=== PATIENT | male | born 1970 | race Caucasian/White ===

== ENCOUNTER 2025-05-22 15:19 | Emergency (ER) | payer SELFPAY ==
--- OUTSIDE RECORDS SUMMARY | 2023-07-04 07:21 | XMS_ITS | Continuity of Care Document ---
Author Organization [facility] Address [address] [id number] [address] Phone Care Team Providers Care Aviation Neuropsychologist Name Role Phone Daniel Juarez OD Unavailable Unavailable Allergies, Adverse Reactions, Alerts Substance Reaction Status Criticality halothane Active No Information Medications Medication Instructions Dosage Effective Dates (start - stop) Status Comments PRAZOSIN 2MG CAPSULES TAKE 1 CAPSULE BY MOUTH EVERY MORNING AND 3 CAPSULES AT BEDTIME - Active CLONIDINE 0.1MG TABLETS TAKE 1 TABLET BY MOUTH THREE TIMES DAILY. JANUARY TAKE 1 ADDITIONAL TABLET PER DAY NEEDED FOR ELEVATED BLOOD PRESSURE - Active PANTOPRAZOLE 40MG TABLETS TAKE 1 TABLET BY MOUTH EVERY DAY - Active LISINOPRIL-HCTZ 20/12.5MG TABLETS TAKE 2 TABLETS BY MOUTH DAILY 2 tablet - Active Halcion 0.25 mg tablet take 1-2 tablet b y oral route every day at bedtime as needed - Active Bystolic 20 mg tablet take 1 tablet by oral route 2 times every day 20 MG - Active tizanidine 4 mg tablet take 1 tablet by oral route 2 times every day as needed not to exceed 3 doses in 24 hours 4 MG - Active amlodipine 10 mg tablet TAKE 1 TABLET BY MOUTH EVERY DAY - Active metformin 500 mg tablet take 1 tablet by oral route 2 times every day with morning and evening meals 500 MG - Active spironolactone 25 mg tablet take 1 tablet by oral route every day 25 MG - Active gabapentin 300 mg capsule TAKE 2 CAPSULE BY ORAL ROUTE THREE TIMES DAILY - Active Voltaren-XR 100 mg tablet,extended release take 1 tablet by oral route 2 times every day 100 MG - Active Procedures Procedure Date Vision svcs frames purchases Lens spher bifoc plano 4.00d Lens spher bifoc plano 4.00d FITTING OF SPECTACLES Vision svcs frames purchases Lens sphcyl bifocal 4.00d/.1 Lens sphcyl bifocal 4.00d/.1 FITTING OF SPECTACLES Vision svcs frames purchases Lens sphcyl bifocal 4.00d/.1 Lens sphcyl bifocal 4.00d/.1 FITTING OF SPECTACLES Tint photochromatic lens/es Tint photochromatic lens/es REFRACTION Eye Exam Estab Pt Fundus Photography With Interpretation A nd Report Bitewings Four Films Periodic Oral Evaluation Established Patient Prophylaxis Adult Fundus Photography With Interpretation A nd Report OFFICE/OUTPATIENT VISIT, EST Self-management Goals Reviewed Oral Hygiene Instructions Nutritional Counseling For Control Of De ntal Disea Caries Moderate Risk Exempt From Sealant Measure Periodic Oral Eval Est Patient - Adult Medicaid Bitewings Four Films Panoramic Film Intraoral Periapical First Film Intraoral Periapical Each Additional Film Intraoral Periapical Each Additional Film Intraoral Periapical Each Additional Film Mar-30-2022 Prophylaxis Adult Vision svcs frames purchases FITTING OF SPECTACLES Lens sphcyl bifocal 4.00d/.1 Lens sphcyl bifocal 4.00d/.1 FITTING OF SPECTACLES Vision svcs frames purchases FITTING OF SPECTACLES REFRACTION OFFICE/OUTPATIENT VISIT, EST Finalize Template Workaround OFFICE/OUTPATIENT VISIT, EST (1371) Finalize Template Workaround OFFICE/OUTPATIENT VISIT, EST (1371) Bitewings Four Films Prophylaxis Adult Periodic Oral Eval Est Patient - Adult Medicaid EDR Approval Note GLYCOSYLATED HEMOGLOBIN TEST HG A1C LEVEL LT 7.0% OFFICE/OUTPATIENT VISIT, EST OFFICE/OUTPATIENT VISIT EST Finalize Template Workaround OFFICE/OUTPATIENT VISIT, EST (1371) Finalize Template Workaround No Charge Vision svcs frames purchases Lens sphcy trifocal 4.0/.- Lens sphcy trifocal 4.0/.12- FITTING OF SPECTACLES Finalize Template Workaround OFFICE/OUTPATIENT VISIT EST Finalize Template Workaround No Charge REFRACTION OFFICE/OUTPATIENT VISIT EST Fundus Photography With Interpretation A nd Report OFFICE/OUTPATIENT VISIT, EST OFFICE/OUTPATIENT VISIT EST OFFICE/OUTPATIENT VISIT, EST IMMUNIZATION ADMIN FLU VAC NO PRSV 4 YUMIKO 6 Months+ - 019 OFFICE/OUTPATIENT VISIT EST COMPLETE CBC W/AUTO DIFF WBC METABOLIC PANEL TOTAL CA LIPID PANEL GLYCOSYLATED HEMOGLOBIN TEST HG A1C LEVEL LT 7.0% ROUTINE VENIPUNCTURE Treatment Plan Complete Resin-Based Composite One Surface, Posterior EDR Approval Note Prophylaxis Adult Pre-Pay For Services EDR Approval Note Panoramic Film Bitewings Four Films Comprehensive Oral Evaluatio n New Or Established EDR Approval Note Pre-Pay For Services OFFICE/OUTPATIENT VISIT EST Finalize Template Workaround No Charge METABOLIC PANEL TOTAL CA ROUTINE VENIPUNCTURE Finalize Template Workaround No Charge COMPREHEN METABOLIC PANEL ROUTINE VENIPUNCTURE OFFICE/OUTPATIENT VISIT EST COMPLETE CBC W/AUTO DIFF WBC COMPREHEN METABOLIC PANEL GLYCOSYLATED HEMOGLOBIN TEST HG A1C LEVEL 7.0-9.0% LIPID PANEL ROUTINE VENIPUNCTURE NO CHARGE OFFICE/OUTPATIENT VISIT EST OFFICE/OUTPATIENT VISIT EST OFFICE/OUTPATIENT VISIT EST OFFICE/OUTPATIENT VISIT EST OFFICE/OUTPATIENT VISIT EST NO CHARGE COMPREHEN METABOLIC PANEL GLYCOSYLATED HEMOGLOBIN TEST HG A1C LEVEL LT 7.0% ROUTINE VENIPUNCTURE OFFICE/OUTPATIENT VISIT EST URINALYSIS AUTO W/O SCOPE ASSAY OF PSA TOTAL ROUTINE VENIPUNCTURE OFFICE/OUTPATIENT VISIT EST OFFICE/OUTPATIENT VISIT EST COMPREHEN METABOLIC PANEL ROUTINE VENIPUNCTURE X-RAY EXAM OF SHOULDER X-RAY EXAM OF KNEES, 3 VIEWS X-RAY EXAM OF KNEES, 3 VIEWS X-RAY EXAM OF SHOULDER X-RAY EXAM OF KNEES, 3 VIEWS X-RAY EXAM OF KNEES, 3 VIEWS OFFICE/OUTPATIENT VISIT EST OFFICE/OUTPATIENT VISIT EST OFFICE/OUTPATIENT VISIT EST NO CHARGE COMPLETE CBC W/AUTO DIFF WBC GLYCOSYLATED HEMOGLOBIN TEST ROUTINE VENIPUNCTURE URINALYSIS AUTO W/O SCOPE LIPID PANEL COMPREHEN METABOLIC PANEL OFFICE/OUTPATIENT VISIT EST PSYTX PT&/FAMILY 30 MINUTES OFFICE/OUTPATIENT VISIT, NEW Advance Directives Directive Yes / No Effective Date File Name No Information Encounters Encounter Description Practice Location Reason(s) For Visit Diagnoses Date Provider Providers Copied on Encounter [facility], [id number] 7405962WR- [place], [address], [place] tel:[phone] Vision F1 Encounter for fit/adjst of spectacles and contact lenses 3 Larry Sanchez. [address], [place], [address], [place]. tel:[phone] Referring Provider: Daniel Juarez, [address] [place], [address] . tel:[phone] [facility], [address] Jdunp[address]W1 7866324FS- [place], [address], [place] tel:[phone] Vision [facility]1 Encounter for fit/adjst of spectacles and contact lenses 3 Larry Sanchez. [address], [place], [address], [place]. tel:[phone] Referring Provider: Daniel Juarez, [address] [place], [address] . tel:[phone] [facility], [address] Ogmhp[address]H6 8394038KF- [place], [address], [place] tel:[phone] Vision F1 Encounter for fit/adjst of spectacles and contact lenses 3 Larry Daniel. [address], [place], [address], [place]. tel:[phone] Referring Provider: Daniel Juarez, [address] [place], [address] . tel:[phone] [facility], [address] Oyftl[address]N7 3792724QA- [place], [address], [place] tel:[phone] Vision F1 diabetic eye exam (chief complaint) Age-related nuclear cataract, bilateralCho rioretinal scar of left eyeOther corneal scarPresbyop iaHypermetro campbell, bilateralTyp e 2 diabetes mellitus without complication s 3 Larry Daniel. [address], [place], [address], [place]. tel:[phone] Referring Provider: Daniel Juarez, [address] [place], [address] . tel:[phone] [facility], [address] Euskz125C1 4609793QKMaplewood[place], [address], [place] tel:[phone] Vision F1 No Information 3 Larry Daniel. [address], [place], [address], [place]. tel:[phone] Referring Provider: Daniel Juarez, [address] [place], [address] . tel:[phone] [facility], [address] [id number] 1663728AAMaplewood[place], [address], [place] tel:[phone] [facility] No Information 2 Chelighada Wing. [address] [place], [address], [place]. tel:[phone] Referring Provider: Mecca Bower, [address] [place], [address]. tel:[phone] OFFICE/OUTPA TIENT VISIT, EST [facility], [address] Myqqr[address] 4342457MN- [place], [address], [place] tel:[phone] Vision F1 Chorioretina l scar of left eyeType 2 diabetes mellitus without complication sOther corneal scar Apr- 2 Larry Sanchez. [address], [place], [address], [place]. tel:[phone] Referring Provider: Daniel Juarez, [address] [place], [address] . tel:[phone] [facility], [address] [id number] 5005750FDMaple[place], [place], [address], [place] tel:[phone] [facility] Encounter for dental exam and cleaning w/o abnormal findings Nov-3 2 Soila Santana. [address], [place], [address], [place]. tel:[phone] Referring Provider: Esther Cm, [address] [place], [address] . tel:[phone] sulting Provider: June Arguello, [address] [place], [address] . tel:[phone] [facility], [address] Jrfwe240Z4 2816990VTMaplewood, [place], [address], [place] tel:[phone] Vision F1 Encounter for fit/adjst of spectacles and contact lenses Oct-2 1 Nadira Pinedo. [address], [place], [address], [place]. tel:[phone] Referring Provider: Shahida Waddell , [address] [place], [address] . tel:[phone] [facility], [address] Iorac608Y3 6232494MZ- [facility], [place], [address], [place] tel:[phone] Vision F1 Encounter for fit/adjst of spectacles and contact lenses Dec- 1 Waddell Summer. [address], [place], [address], [place]. tel:[phone] Referring Provider: Shahida Waddell , [address] [place], [address] . tel:[phone] [facility], [address] [id number] 5547532IL- [place], [address], [place] tel:[phone] Vision F1 Encounter for fit/adjst of spectacles and contact lenses 1 Waddell Summer. [address], [place], [address], [place]. tel:[phone] Referring Provider: Shahida Waddell , [address] [place], [address] . tel:[phone] OFFICE/OUTPA TIENT VISIT, EST [facility], [address] [id number] 6806228II- [facility], [place], [address], [place] tel:[phone] Vision F1 blurry vision (chief complaint)rosanna betic eye exam (chief complaint) Type 2 diabetes mellitus without complication sHypermetrop ia, bilateralReg ular astigmatism, bilateralPre sbyopiaAge-r elated nuclear cataract, bilateral Dec- 1 Waddell Summer. [address], [place], [address], [place]. tel:[phone] Referring Provider: Shahida Waddell , [address] [place], [address] . tel:[phone] [facility], [address] Fesms388V5 3241275WX- [place], [address], [place] tel:[phone] Family Medicine F2 No Information 0 No Information [facility], [address] Vzyid686Z5 0354809TUElberta, [place], [address], [place] tel:[phone] Family Medicine F2 No Information 0 Coates Ani. [address], [place], [address], [place]. tel:[phone] [facility], [address] Eqdns283R1 8684553WFMaplewood, [place], [address], [place] tel:[phone] [facility] [place] insomnia (chief complaint) Insomnia due to anxiety and fearPost-tra umatic stress disorder, chronic 0 Jaxon Ani. [address], [place], [address], [place]. tel:[phone] Referring Provider: Ani Goodman, [address] [place], [address] . tel:[phone] [facility], [address] Nppgr729N1 0455447TEMaplewood, [place], [address], [place] tel:[phone] [facility] [place] No Information 0 Jaxon Christineie. [address], [place], [address], [place]. tel:[phone] [facility], [address] Xjukb988F2 8283508KFMaplewood, [place], [address], [place] tel:[phone] Behavioral Medicine F2 depression (chief complaint)anx iety (chief complaint)PHQ 16 (chief complaint) Major depressive disorder, recurrent, moderatePost -traumatic stress disorder, chronic 0 Jaxon Ani. [address], [place], [address], [place]. tel:[phone] Referring Provider: Ani Goodman, [address] [place], [address] . tel:[phone] [facility], [address] Glzdh020B0 7547083SX- [place], [address], [place] tel:[phone] Behavioral Medicine F2 No Information 0 No Information [facility], [address] [id number] 1458119TI- [facility], [place], [address], [place] tel:[phone] Behavioral Medicine F2 No Information 0 No Information [facility], [address] [id number] 3337662UD- [place], [place], [address], [place] tel:[phone] [facility] Encounter for dental exam and cleaning w/o abnormal findings 0 Sincere Ramirez. [address] [place], [address], [place]. tel:[phone] Referring Provider: James Post, [address] [place], [address]. tel:[phone] OFFICE/OUTPA TIENT VISIT, EST [facility], [address] Zfzmy437T0 7414640GOElberta, [place], [address], [place] tel:[phone] Family Medicine F1 diabetes (chief complaint)hyp ertension (chief complaint) Type 2 diabetes mellitus without complication sHypertensio n 0 Jaxon Law. [address], [place], [address], [place]. tel:[phone] Referring Provider: Ani Goodman, [address] [place], [address] . tel:[phone] [facility], [address] Cqedk867W7 8101031TB- [place], [address], [place] tel:[phone] Family Medicine F1 No Information 0 Jaxon Law. [address], [place], [address], [place]. tel:[phone] OFFICE/OUTPA TIENT VISIT EST [facility], [address] Jgrgv301Y2 3841393EM- [place], [address], [place] tel:[phone] Family Medicine F1 GERD (chief complaint)pso riasis (chief complaint) GERD without esophagitisD ry skin dermatitis Dec-2 0 Jaxon Law. [address], [place], [address], [place]. tel:[phone] Referring Provider: Ani Goodman, [address] [place], [address] . tel:[phone] [facility], [address] Chusw442B0 4170352NR- [place], [address], [place] tel:[phone] Behavioral Medicine F2 depression (chief complaint)PTS D (chief complaint)med ication management (chief complaint) Major depressive disorder, recurrent, moderatePost -traumatic stress disorder, chronic Dec- 0 No Information [facility], [address] Grjdb849W8 2028909YG- [place], [address], [place] tel:[phone] Family Medicine F1 Hypertension (chief complaint) Hypertension Dec-0 0 Chau Crews. [address], [place], [address], [place]. tel:[phone] Referring Provider: Eleonora Ritchie, [address] [place], [address] . tel:[phone] [facility], [address] Bcive641J1 0935387ILMaplewood, [place], [address], [place] tel:[phone] Vision F1 Encounter for fit/adjst of spectacles and contact lenses Dec-0 0 Larry Sanchez. [address], [place], [address], [place]. tel:[phone] Referring Provider: Daniel Juarez, [address] [place], [address] . tel:[phone] [facility], [address] [id number] 1063691JR- [place], [address], [place] tel:[phone] Family Medicine F1 Follow Up of HTN (chief complaint)Fol low Up of Diabetes (chief complaint)Fol low Up of liver cyst (chief complaint) Class 2 severe obesity due to excess calories with serious comorbidity and body mass index (BMI) of 37.0 to 37.9 in adultHyperte nsionType 2 diabetes mellitus without complication s Dec-0 0 No Information [facility], [address] Cvsep195Y3 5490586NPElberta, [place], [address], [place] tel:[phone] Family Medicine F1 Hypertension (chief complaint) Hypertension Nov-2 0 Chau Crews. [address], [place], [address], [place]. tel:[phone] Referring Provider: Eleonora Ritchie, [address] [place], [address] . tel:[phone] OFFICE/OUTPA TIENT VISIT EST [facility], [address] Bsdko253J4 3326734OKElberta, [place], [address], [place] tel:[phone] Vision F1 diabetic eye exam (chief complaint) Hypermetropi a, bilateralReg ular astigmatism, bilateralPre sbyopiaType 2 diabetes mellitus without complication sHypertensiv e retinopathy, right eye Nov-2 0 Larry Sanchez. [address], [place], [address], [place]. tel:[phone] Referring Provider: Daniel Juarez, [address] [place], [address] . tel:[phone] [facility], [address] Ensxp742E3 3600276KX- [facility], [place], [address], [place] tel:[phone] Family Medicine F1 No Information 0 No Information [facility], [address] [id number] 2959308PJAdventhealth [place], [place], [place], [address], [place] tel:[phone] Family Medicine F1 No Information 0 No Information OFFICE/OUTPA TIENT VISIT, [facility], [address] [id number] 4616015QEAdventhealth [place], [place], [place], [address], [place] tel:[phone] [facility] depression (chief complaint)PTS D (chief complaint)ins omnia (chief complaint)med ication management (chief complaint) Major depressive disorder, recurrent, moderatePost -traumatic stress disorder, chronicInsom marcus, unspecified 0 No Information OFFICE/OUTPA TIENT VISIT [facility], [address] Lidsc501B2 2239342IAAdventhealth [place], [place], [address], [place] tel:[phone] [facility] Follow Up of hypertension (chief complaint)Fol low Up of diabetes (chief complaint)Fol low Up of Obesity (chief complaint)Rec ent Neck Surgery (chief complaint) Encounter for immunization Hypertension Type 2 diabetes mellitus without complication sClass 2 severe obesity due to excess calories with serious comorbidity and body mass index (BMI) of 37.0 to 37.9 in adultCervica l arthritis 0 No Information [facility], [address] Bgezg349J6 6311152FZAdventhealth [place], [place], [place], [address], [place] tel:[phone] Family Medicine F1 No Information 9 No Information OFFICE/OUTPA TIENT VISIT, [facility], [address] Fnukf561L6 9547499JRAdventhealth [place], [place], [address], [place] tel:[phone] [facility] Depression (chief complaint)PTS D (chief complaint)anx iety (chief complaint)med ication management (chief complaint) Major depressive disorder, recurrent, moderatePost -traumatic stress disorder, chronicInsom marcus, unspecified 9 No Information OFFICE/OUTPA TIENT VISIT EST [facility], [address] Karag240Z7 1755570WA- [place], [address], [place] tel:[phone] [facility] Establishing care (chief complaint)Hyp ertension (chief complaint)Rosanna betes Mellitus (chief complaint)Obe sity (chief complaint) Hypertension Class 2 severe obesity due to excess calories with serious comorbidity and body mass index (BMI) of 37.0 to 37.9 in adultBody mass index (bmi) 37.0-37.9, adultType 2 diabetes mellitus with hyperglycemi a, without long-term current use of insulin 9 No Information [facility], [address] Hfpkb226E9 3911202ZN- [place], [address], [place] tel:[phone] [facility] Encounter for dental exam and cleaning w/o abnormal findings 9 Jae Abraham. [address] [place], [address], [place]. tel:[phone] Referring Provider: Jarad Stewart, [address] [place], [address]. tel:[phone] [facility], [address] Ldulu355F1 5556680GR- [place], [place], [address], [place] tel:[phone] [facility] Encounter for dental exam and cleaning w/o abnormal findings 9 Sincere Ramirez. [address] [place], [address], [place]. tel:[phone] Referring Provider: James Post, [address] [place], [address]. tel:[phone] [facility], [address] Dpqyu479M7 7050230ZJ- [place], [address], [place] tel:[phone] [facility] Encounter for dental exam and cleaning w/o abnormal findings 9 Jae Abraham. [address] [place], [address], [place]. [phone] Referring Provider: Jarad Stewart, [address] [place], [address]. tel:[phone] OFFICE/OUTPA TIENT VISIT EST [facility], [address] Qpxtz323B7 2416111ZGElberta, [place], [address], [place] tel:[phone] [facility] HTN (chief complaint)obe sity (chief complaint)[facility]. (chief complaint) Hypertension Obesity 9 No Information [facility], [address] Yqsbq857R7 3962119AVMaplewood, [place], [address], [place] tel:[phone] Family Medicine F1 Hypertension (chief complaint) Hypertension 9 Cillessen Eleonora. [address], [place], [address], [place]. tel:[phone] Referring Provider: Eleonora Ritchie, [address] [place], [address] . tel:[phone] [facility], [address] Tsrio576Q8 6289363JWMaplewood, [place], [address], [place] tel:[phone] Family Medicine F1 MTS Prescription Order (chief complaint)Hyp ertension (chief complaint) Hypertension Obesity, unspecifiedO ther retirement (current) drug therapy 9 Chau Chasea. [address], [place], [address], [place]. tel:[phone] Referring Provider: Eleonora Ritchie, [address] [place], [address] . tel:[phone] OFFICE/OUTPA TIENT VISIT EST [facility], [address] Cfnjy383L6 9160965GVAdventhealth [place], [place], [address], [place] tel:[phone] [facility] HTN (chief complaint)med ication management (chief complaint) Hypertension Type 2 diabetes mellitus without complication sOther retirement (current) drug therapy 9 No Information [facility], [address] Rempp384G4 1376958AFKiowa [facility], [place], [address], [place] tel:[phone] Family Medicine F1 No Information 9 No Information OFFICE/OUTPA TIENT VISIT [facility], [address] Prbjy208Y0 1707729MFMaplewood, [place], [address], [place] tel:[phone] [facility] HTN (chief complaint)[facility] follow up (chief complaint) Hypertension Obesity 9 No Information OFFICE/OUTPA TIENT VISIT [facility], [address] Iihyu955P7 5072643GSMaplewood, [place], [address], [place] tel:[phone] [facility] HTN (chief complaint)[facility] follow up (chief complaint) Hypertension Obesity 9 No Information OFFICE/OUTPA TIENT VISIT [facility], [address] Byxim074H5 8972147AZKiowa [facility], [place], [place], [address], [place] tel:[phone] [facility] HTN (chief complaint)[facility] follow up (chief complaint) Hypertension GERD without esophagitis 9 No Information OFFICE/OUTPA TIENT VISIT [facility], [address] Yonqb592G9 3488635UDMaplewood, [place], [address], [place] tel:[phone] [facility] HTN (chief complaint)kne e replacement (chief complaint)[facility] follow up (chief complaint) Hypertension ObesityGERD without esophagitis Fe 9 No Information OFFICE/OUTPA TIENT VISIT [facility], [address] Hbkhj794I1 5509657VW- [facility], [place], [place], [address], [place] tel:[phone] [facility] HTN (chief complaint)Obe sity (chief complaint)Ins omnia (chief complaint)Med ication management (chief complaint) Hypertension Type 2 diabetes mellitus without complication sObesityInso mnia, unspecified 9 No Information [facility], [address] Dhffu392N5 8019490WLAdventhealth [place], [place], [place], [address], [place] tel:[phone] Family Medicine F1 No Information 8 No Information [facility], [address] Ohdbo636I3 7583034FNAdventhealth [place], [place], [place], [address], [place] tel:[phone] [facility] Other retirement (current) drug therapy 8 No Information OFFICE/OUTPA TIENT VISIT [facility], [address] Qvybk950M9 1726442ANEl[place]ta, [place], [address], [place] tel:[phone] [facility] Major Depression (chief complaint)PTS D (chief complaint)Ins omnia (chief complaint)Med ication management (chief complaint) Major depressive disorder, recurrent, moderatePost -traumatic stress disorder, chronicInsom marcus, unspecifiedB enign prostatic hyperplasia with lower urinary tract symptoms 8 No Information OFFICE/OUTPA TIENT VISIT [facility], [address] Awllq657L7 7975303OYElberta, [place], [address], [place] tel:[phone] [facility] Major depression (chief complaint)PTS D (chief complaint)Ins omnia (chief complaint)HTN (chief complaint)Med ication management (chief complaint) Major depressive disorder, recurrent, moderatePost -traumatic stress disorder, chronicInsom marcus, unspecifiedH ypertension 8 No Information OFFICE/OUTPA TIENT VISIT [facility], [address] Ydgmt121P9 0687587RJ- [facility], [place], [address], [place] tel:[phone] [facility] HTN (chief complaint)[facility] follow up (chief complaint) Hypertension Insomnia, unspecifiedC arpal tunnel syndrome, bilateral upper limbsPain in left footNeuropat hy 8 No Information [facility], [address] Rmjsc971X4 6932908ZVMaplewood, [place], [address], [place] tel:[phone] Family Medicine F1 Pain in right shoulderPain in unspecified knee 8 Vi Gutiérrez. [address], [place], [address], [place]. tel:[phone] Referring Provider: Brock Lebron, [address] [place], [address] . tel:[phone] [facility], [id number], [place], [id number], [place] tel:[phone] Family Medicine F1 Pain in right shoulderPain in unspecified knee 8 No Information OFFICE/OUTPA TIENT VISIT EST [facility], [id number], [place], [id number], [place] tel:[phone] [facility] Post-traumati c stress disorder (chief complaint)dep ression (chief complaint)med ication management (chief complaint) Major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 therapy, cultural, ethnic, and community supports. The patient identifies that he has good support through his family and he is involved with outpatient psychotherapy on a weekly basis.The patient does have prior service.Legal information:The patient is pending legal action through the mental health court. 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 Apparently he was hurt on the job and was involved with a worker's compensation case however ended up being fired. Establish Primary Care Medical H x:HTNChronic pain: OA, multiple surgeries, back fx.Hemangioma in neck C4 or 5Has numbness and tingling into bilateral hands probably r/t shoulder/cervical [id number] hx of fx 2010Surgical Hx:R shoulder x2--mid 90's, 2002 (rotator cuff issues, tendons)L shoulder 2005R toe 90'sR KneeL handPreventative Hx:Dental exam-2014Eye exam-years agono labs since 2014 BP The symptoms are reported as being moderate. He states the symptoms are chronic. 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 Related to Type 2 diabetes mellitus without complications Impression/Plan Related to Hyper metropia, bilateral Impression/Plan Related to Type 2 diabetes mellitus without complications Patient was educated on risks and benefits of medication changes including possible pharmacologic interactions, expectations of efficacy and potential side effects. Reason for medications and/or changes were explained including genetic match, side effect profile, and targeted symptoms. We discussed other options for treatment and lifestyle changes. Pt was instructed to continue treatment plan as discussed today. Pt was educated on signs and symptoms that indicate to return to the clinic or seek emergent care. All pt questions were answered, pt expressed understanding. Pt educated on healthy sleep hygiene.-set a comfortable sleeping area that is dark and quiet-avoid screen time before bed-establish a bed time routine-avoid exercise 4 hours before bed-go to bed at the same time every night, get up at the same time every morning-avoid caffeine, alcohol and tobacco 4 hours before bed-do not nap during the day-if you can not sleep, get out of bed do a relaxing activity and try to go to sleep again Related to Insomnia due to anxiety and fear Weight control education Related to Insomnia due to anxiety and fear Hypertension education Related t o Insomnia due to anxiety and fear Patient was educated on risks and benefits of medication changes including possible pharmacologic interactions, expectations of efficacy and potential side effects. Reason for medications and/or changes were explained including genetic match, side effect profile, and targeted symptoms. We discussed other options for treatment and lifestyle changes. Pt was instructed to continue treatment plan as discussed today. Pt was educated on signs and symptoms that indicate to return to the clinic or seek emergent care. All pt questions were answered, pt expressed understanding. Related to Major depressive disorder, recurrent, moderate Weight control education Related to Major depressive disorder, recurrent, moderate Hypertension education Related t o Major depressive disorder, recurrent, moderate Weight control education Related to Type 2 diabetes mellitus without complications Hypertension education Related t o Type 2 diabetes mellitus without complications Recommend OTC moistu rizers, cetaphil, lubriderm or eucerin 1-2 times daily as needed. Related to Dry skin dermatitis Start prantaprazole and d/c omeprazole. Pt instructed to avoid aggravating factors such as nicotine, caffeine, carbonation, spicy foods, alcohol and foods with high levels of acidity. All pt questions were answered. Pt expressed understanding.Consider scope if sxs do not improve. F/u in 8 weeks Related to GERD without esophagitis Hypertension education Related t o GERD without esophagitis Weight control education Related to GERD without esophagitis 1. Will increase Pra zosin to 2 mg in am and continue with 6 mg. at HS.2. Continue with Halcion.3. Patient will schedule with Veda Coates for further appts. Related to Major depressive disorder, recurrent, moderate - Advised to continu e to work on healthy diet and weight loss Related to Class 2 severe obesity due to excess calories with serious comorbidity and body mass index (BMI) of 37.0 to 37.9 in adult - Continue metformin - Currently compliant with no signs of complications Related to Type 2 diabetes mellitus without complications Reviewed dietary miguel delines for hypertension management Continue current medication and monitor BP regularly Call office for consistently elevated SBP > 150 mmhg or DBP > 90mmHgEmphasized importance of daily exercise and low salt diet Related to Hypertension Hypertension education Related t o Hypertension Weight control education Related to Class 2 severe obesity due to excess calories with serious comorbidity and body mass index (BMI) of 37.0 to 37.9 in adult Impression/Plan Impression/Plan Impression/Plan 1. Today will add Bu spar 15 mg. TID and was instructed on how to titrate this.2. Medication education along with risks versus benefits provided and patient verbalized understanding.3. Continue with all other medications without change.4. Follow up in 3 month and call as needed. Related to Major depressive disorder, recurrent, moderate Hep A Vaccine ordered Related to Encounter for immunization continue to follow w [facility] surgeon for pain control Related to Cervical arthritis Continue Metformin a t current dose Continue to work on diet, increased mobility and weight loss No increase in medication dosage at this time Related to Type 2 diabetes mellitus without complications Will work on weight loss Related to Class 2 severe obesity due to excess calories with serious comorbidity and body mass index (BMI) of 37.0 to 37.9 in adult Add Bystolic second tablet 20mg OD Related to Hypertension 1. Continue with cur rent medications without change.2. Reviewed medication agreement and expectations for medication compliance. Stressed the importance of following the prescribed directions as over/under use may cause a breech in the medication agreement, thus interfering with continued treatment.3. Follow up in 3 months. Call as needed. Related to Major depressive disorder, recurrent, moderate Continue Metformin B ased on A1C drawn in 2 days, decide on increasing Metformin to goal dose or adding additional medication Related to Type 2 diabetes mellitus with hyperglycemia, without long-term current use of insulin - Worsened by [facility] Issues- Advised continued increased activity levels to maintain weight and decrease pain levels Related to Class 2 severe obesity due to excess calories with serious comorbidity and body mass index (BMI) of 37.0 to 37.9 in adult - Advised against pr n Clonidine for episodic BP spikes - Continue current regimen and call office if worsening baseline BP > 150/90 or if worsening lower extremity edema, chest pain, shortness of breath - ECHOcardiogram ordered for later in July for clearance for upcoming surgery Related to Hypertension 1. Continue with cur rent medications without change.2. Will see Dr. Albarran for primary care in the future and this provider for mental health.3. Reviewed healthy lifestyle changes to include low fat diet and increased exercise.4. Will be prepared for fasting labs when he sees Dr. Albarran. 5. Follow up for mental health in 3 months. Related to Hypertension Hypertension education Related t o Hypertension Weight control education Related to Obesity 1. At this time will continue with medication as he is taking but will refer to pharm D for evaluation of HTN and medications.2. Follow up in 6-8 weeks for mental health. Related to Hypertension 1. In consultation w sandhya Albarran, will resume Losartan at 25 mg. d., increase HCTZ to 25 mg. d.2. continue with all other medications without change.3. Will obtain labs from [facility] and note that kidney function was ok 02/08/19.4. Next appt. in 4-6 weeks will obtain fasting labs.5. Medication education along with risks versus benefits provided and patient verbalized understanding.6. Call as needed. Related to Hypertension 1. As patient has nunez ccess with Clonidine in the hospital will d/c Losartan and added Clonidine 0.1 BID.2. Continue with all other medications.3. Requested he check his blood pressure daily and record results bring to next appt.4. Scheduled for knee replacement 02/06/19.5. Follow up in 4-6 weeks and call as needed with any questions or concerns. Related to Hypertension Hypertension education Related t o Hypertension Weight control education Related to Obesity 1. Will have patient try and obtain Nexium to see if this improves his GERD.2. Follow up in 8 weeks for mental health. Call as needed with any questions or concerns. Related to GERD without esophagitis 1. D/C lisinopril2. Add Losartan 25 mg. 1 d. for 7 days then increase to BID3. Medication education along with risks versus benefits provided and patient verbalized understanding.4. Requesting he check his blood pressure 3 times weekly and call in a few weeks to evaluate how medication change is working. Related to Hypertension 1. D/C Pepcid 2. Add Nexium 40 mg. d.3. Medication education along with risks versus benefits provided and patient verbalized understanding.4. Follow up in 4 weeks for pcp and call as needed with any questions or concerns. Related to GERD without esophagitis 1. Reviewed healthy lifestyle changes to include low fat diet and increased exercise. Related to Obesity 1. Will continue wit h current meds but will have patient split them out during the day. 2. Continue to keep blood pressure log and bring results.3. Discussed how exercise and stress reduction will also help with his blood pressure and he verbalized understanding. Related to Hypertension Hypertension education Related t o Hypertension Weight control education Related to Obesity 1. Reviewed healthy lifestyle changes to include low fat diet and increased exercise. Related to Obesity 1. D/C Ambien2. Add Halcion3. Medication education along with risks versus benefits provided and patient verbalized understanding.4. Follow up in 2-3 months and call as needed with any further questions or concerns. Related to Insomnia, unspecified 1. Patient wants to try diet modification first before adding Metformin.2. Diet education provided with handout.3. Repeat HgbA1c in 2-3 months. Related to Type 2 diabetes mellitus without complications 1. Will increase Lis inopril to 40 mg. d.2. Continue with HCTZ 12.5 mg. in am3. Continue with all blood pressure medication.4. Reviewed no added Na diet.5. Medication education provided. Related to Hypertension Hypertension education Related t o Hypertension Weight control education Related to Obesity 1. D/C Pristiq and L unesta.2. Add Ambien 10 mg. HS3. Continue with all other medications without change.4. Medication education along with risks versus benefits provided and patient verbalized understanding.5. Will obtain UA and PSA due to reports of difficulty with urinary frequency and urgency.6. The patient will be seen again in 8 weeks and call as needed with any questions or concerns. Related to Major depressive disorder, recurrent, moderate 1. Increase Bystolic to 20 mg. 2. Continue with all other medications without change.3. The patient will be seen again in 4-6 weeks for mental health visit and call as needed with any questions or concerns. Related to Hypertension 1. D/C Restoril2. Ad d Halcion 0.25 mg. 1-2 HS3. Medication education provided and patient verbalized understanding. Related to Insomnia, unspecified 1. Increase Prazosin to 2 mg. 3 at HS for residual nightmares.2. Medication education provided and patient verbalized understanding. Related to Post-traumatic stress disorder, chronic 1. Today will add Pr istiq 50 mg. d.2. Medication education provided and patient verbalized understanding. Related to Major depressive disorder, recurrent, moderate Hypertension education Related t o Hypertension 1. D/C Coreg2. Add B ystolic 10 mg. d.3. Continue with other medication.4. Follow no added Na diet and continue with home b/p monitoring.5. Medication education provided and patient verbalized understanding. Related to Hypertension 1. Start Gabapentin 300 mg. titrate to TID.2. Medication education provided and patient verbalized understanding.3. Follow up in 6 weeks and call as needed. Related to Neuropathy 1. Refer to Dr. Grady at [facility]. R elated to Pain in left foot 1. Refer for EMG then to Dr. Acacia vicente. Related to Carpal tunnel syndrome, bilateral upper limbs 1. Unable to get Rhett cion due to insurance; will start Restoril 30 mg. HS.2. Medication education provided and patient verbalized understanding. Related to Insomnia, unspecified 1. Will obtain basel ine x-rays of bilateral knees and R shoulder today. 2. Refer patient to Dr. Keller at [facility] Ortho number [phone]. He has worked with this patient in the past.3. The patient will be seen again in 6-8 weeks and call as needed with any questions or concerns. Related to Pain in unspecified knee 1. Increase Bystolic 20 mg. 2 d. 2. Medication education provided and patient verbalized understanding. Related to Hypertension 1. D/C Zoloft today. 2. Will obtain metabolic genetic testing before we add any other medication for mood. Related to Major depressive disorder, recurrent, moderate 1. Add Halcion 0.25 mg. 1-2 at HS.2. Medication education provided and patient verbalized understanding. Related to Insomnia, unspecified 1. Continue with cur rent medications.2. Will look to refer the patient to ortho as soon as he has insurance due to both shoulder and knee degeneration. Blood pressure may be elevated r/t pain.3. Reviewed no added Na diet.4. The patient will be seen again in 4-6 weeks and call as needed with any questions or concerns. Related to Hypertension 1. Increase Prazosin 2 mg. 2 at HS.2. Medication education provided and patient verbalized understanding. Related to Post-traumatic stress disorder, chronic 1. Reviewed labs don e previously.2. Increase Zoloft to 100 mg. d.3. Medication education provided and patient verbalized understanding. Related to Major depressive disorder, recurrent, moderate 1. The patient will try and obtain a copy of his genetic testing that was done at a previous office and bring us the results.2. Will initiate Zoloft 50 mg daily to help with both dysphoria as well as anxiety.3. Will add prazosin 2 mg at bedtime to help with PTSD related nightmares. We did discuss that we may be able to use this medication during the daytime as well to help further with some of the anxiety and flashbacks related to his PTSD.4. Medication education was provided and the patient verbalizes understanding.5. We will obtain a follow-up for mental health in approximately 4-6 weeks however he will call as needed with any further questions or concerns. Related to Major depressive disorder, recurrent, moderate 1. Patient has chron ic pain in multiple areas and at some point would like referral to ortho due to shoulder injury but at this time doesn't have any insurance so we will wait at this point.2. Requested fasting labs prior to next visit.3. The patient will be seen again in 4 weeks and call as needed with any questions or concerns. Related to Chronic pain syndrome 1. Increase Bystolic to 20 mg. d.2. Requested patient keep a log of blood pressures and bring to next visit.3. Discussed low Na diet4. Discussed the role of his PTSD/Anxiety and his blood pressure. He agreed to be seen for mental health evaluation. Related to Hypertension Will address a 1-afia e Rx for medsPCP f/u arrangedDiscussed Slide/CMAPWill [facility] Related to Hypertension Hypertension education Related t o Hypertension Assessments Type Assessment Date No Information Patient Care Teams Name Effective Dates (start - stop) Status Members No Information
[2025-05-22 15:22] VITALS: BP 168/123; PULSE 90; RESP 16; TEMP 36.4; O2SAT 98
--- NOTE | 2025-05-22 15:25 | CTR_ITS ---
PROCEDURE INFORMATION: Exam: CT Abdomen And Pelvis Without Contrast Exam date and time: 05/22/2025 3:42 PM Age: 54 years old Clinical indication: Abdominal pain; Flank; Left; Prior surgery; Surgery date: 6+ months; Surgery type: Bilateral hips, lumbar; Additional info: Left flank pain TECHNIQUE: Imaging protocol: Computed tomography of the abdomen and pelvis without contrast. Radiation optimization: All CT scans at this facility use at least one of these dose optimization techniques: automated exposure control; mA and/or kV adjustment per patient size (includes targeted exams where dose is matched to clinical indication); or iterative reconstruction. COMPARISON: No relevant prior studies available. RADIATION DOSE METRICS: Total DLP (mGy-cm): 1109.13 FINDINGS: Tubes, catheters and devices: Limited by streak artifact from metal hardware. Liver: Normal. No mass. Gallbladder and biliary ducts: Normal. No calcified stones. No ductal dilation. Pancreas: Normal. No ductal dilation. Spleen: Normal. No splenomegaly. Adrenal glands: 2 cm x 2.2 cm by 2.2 cm indeterminate right adrenal nodule measuring 18 Hounsfield units in density. Unremarkable left adrenal gland. Kidneys and ureters: Small nonobstructing calculus in the lower left kidney. Portions of the ureters are obscured by streak artifact. Indeterminate 2.7 cm posterior right renal mass. No other obvious renal or ureteral abnormality, but evaluation for such is quite limited by lack of contrast and streak artifact. Stomach and bowel: Some bowel in the inferior pelvis is obscured by streak artifact. Multiple diverticula from the colon. No CT evidence of diverticulitis. Otherwise, unremarkable. Appendix: The appendix is mildly dilated measuring 8 mm, and there is a tiny amount of adjacent fat stranding. This could be mild appendicitis. No associated periappendiceal abscess or evidence of perforation. Intraperitoneal space: Unremarkable. No free air. No significant fluid collection. Vasculature: Unremarkable. No abdominal aortic aneurysm. Lymph nodes: Unremarkable. No enlarged lymph nodes. Urinary bladder: Most of the urinary bladder is obscured. The dome is unremarkable. Reproductive: Most reproductive structures are obscured. Bones/joints: Posterior L3-L5 surgical fusion and laminectomies with hardware. Mild multilevel spondylosis in the remainder of the visualized spine. Streak artifact from bilateral hip arthroplasties obscures much of the inferior pelvis. Otherwise, unremarkable. Soft tissues: Portions of the body wall are obscured by streak artifact. Otherwise, unremarkable visualized body wall. Otherwise, unremarkable soft tissues. CT/CT kidney stone [id number] IMPRESSION: 1. The appendix is mildly dilated measuring 8 mm, and there is a tiny amount of adjacent fat stranding. This could be mild appendicitis. 2. 2 cm x 2.2 cm by 2.2 cm indeterminate right adrenal nodule measuring 18 Hounsfield units in density. Consider evaluating this further with multiphase CT or contrast MRI. 3. Indeterminate 2.7 cm posterior right renal mass. This can also be further characterized with multiphase CT or contrast MRI. 4. No other acute findings identified. 5. Additional details as above. COMMENTS: 1. Consistent with the [employer]'s Incidental Findings Committee white paper (J Am Corrie Radiol 2017): For any incidental adrenal lesion greater than or equal to 1 cm but less than or equal to 4 cm classified in this report as benign, likely benign, or containing fat (including classification as an adenoma or myelolipoma), no follow-up imaging is recommended per consensus recommendations based on imaging criteria. Further lab evaluation could be pursued if warranted based on clinical findings. 2. Consistent with the [employer]'s Incidental Findings Committee white paper (J Am Corrie Radiol 2018): Any incidental renal lesion less than 1 cm or classified as too small to characterize, or any incidental cystic renal lesion characterized as simple-appearing, is likely benign. No follow-up imaging is recommended for these lesions per consensus recommendations based on imaging criteria.
--- NOTE | 2025-05-22 15:25 | CTR_ITS ---
PROCEDURE INFORMATION: Exam: CT Head Without Contrast Exam date and time: 05/22/2025 3:39 PM Age: 54 years old Clinical indication: Weakness, extremity; Left; Additional info: Left arm weakness TECHNIQUE: Imaging protocol: Computed tomography of the head without contrast. Radiation optimization: All CT scans at this facility use at least one of these dose optimization techniques: automated exposure control; mA and/or kV adjustment per patient size (includes targeted exams where dose is matched to clinical indication); or iterative reconstruction. COMPARISON: No relevant prior studies available. RADIATION DOSE METRICS: Total DLP (mGy-cm): 1127.08 FINDINGS: Brain: No hemorrhage. Unremarkable white matter. Focally enlarged CSF density in the subarachnoid space overlying the high convexity left frontal lobe, measuring approximately 3.8 x 2.7 x 2.4 cm, with mild effacement of the underlying cerebral sulci. Cerebral ventricles: No ventriculomegaly. Paranasal sinuses: Polypoid mucosal thickening of the right sphenoid sinus. The remainder of the paranasal sinuses are clear. Mastoid air cells: Visualized mastoid air cells are well aerated. Bones: Unremarkable. No acute fracture. Soft tissues: Unremarkable. CT/CT head wo con* [id number] IMPRESSION: 1. No acute intracranial hemorrhage or CT evidence of ischemia. 2. Focally enlarged CSF density in the subarachnoid space overlying the high convexity left frontal lobe, measuring approximately 3.8 x 2.7 x 2.4 cm, with mild effacement of the underlying cerebral sulci, suspicious for an underlying arachnoid cyst. Recommend nonemergent MRI brain with and without contrast for further evaluation.
--- NOTE | 2025-05-22 15:32 | W.ED.GENADLT ---
HPI - General Adult General: Chief complaint: General Medical Stated complaint: Voiding difficulty Time Seen by Provider: 05/22/25 15:23 History of Present Illness: 54-year-old man who presents emergency room by ambulance from [facility] with left flank pain and difficulty urinating. He also states his left arm has been feeling weak. He said has been having the flank pain for about 4 days. The weakness has been for over 2 days. No fevers. He has had some nausea but no vomiting. No chest pain. He has some tenderness in the left lower abdomen and his left flank. Related Data Home Medications ?Medication ?Instructions ?Recorded ?Confirmed amlodipine 10 mg tablet 10 mg PO DAILY 05/22/25 05/22/25 clonazepam 2 mg tablet 2 mg PO BID PRN Anxiety 05/22/25 05/22/25 clonidine HCl 0.1 mg tablet 0.1 mg PO BID 05/22/25 05/22/25 dexlansoprazole 30 mg 30 mg PO BID 05/22/25 05/22/25 capsule,biphase delayed release famotidine 40 mg tablet 40 mg PO BID 05/22/25 05/22/25 gabapentin 300 mg capsule See Rx Instructions .Route .COMPLEX 05/22/25 05/22/25 hydromorphone 4 mg tablet 4 mg PO Q4H PRN Pain 05/22/25 05/22/25 lisinopril 40 mg tablet 40 mg PO DAILY 05/22/25 05/22/25 metformin 500 mg tablet 500 mg PO BID 05/22/25 05/22/25 oxycodone 15 mg tablet 15 mg PO Q6H PRN Moderate Pain 05/22/25 05/22/25 (Scale Score 5-6) rosuvastatin 10 mg tablet 10 mg PO BEDTIME 05/22/25 05/22/25 silver sulfadiazine 1 % topical 1 applic topical TID PRN Skin 05/22/25 05/22/25 cream Irritation temazepam 30 mg capsule 30 mg PO QPM PRN Insomnia 05/22/25 05/22/25 tizanidine 4 mg tablet 4 mg PO Q6H PRN Spasms 05/22/25 05/22/25 trazodone 100 mg tablet 100 mg PO BEDTIME 05/22/25 05/22/25 Allergies Allergy/AdvReac Type Severity Reaction Status Date / Time Anesthetics - Amide Type - Allergy Unknown Verified 05/22/25 15:28 [facility] - Roberta Type- Allergy Unknown Verified 05/22/25 15:28 Parabens pseudoephedrine Allergy Unknown Verified 05/22/25 15:28 MSG Allergy Unknown Uncoded 05/22/25 15:28 Review of Systems Narrative: Constitutional symptoms: Negative except as documented in HPI. Skin symptoms: Negative except as documented in HPI. Eye symptoms: Negative except as documented in HPI. ENMT symptoms: Negative except as documented in HPI. Respiratory symptoms: Negative except as documented in HPI. Cardiovascular symptoms: Negative except as documented in HPI. Gastrointestinal symptoms: Negative except as documented in HPI. Genitourinary symptoms: Negative except as documented in HPI. Musculoskeletal symptoms: Negative except as documented in HPI. Neurologic symptoms: Negative except as documented in HPI. Psychiatric symptoms: Negative except as documented in HPI. Endocrine symptoms: Negative except as documented in HPI. Physical Exam Narrative: EXAM NARRATIVE: General: Alert, no acute distress. Skin: Warm, dry. Head: Normocephalic, atraumatic. Neck: Supple, trachea midline. Eye: Extraocular movements are intact. Ears, nose, mouth and throat: mucosa moist. Cardiovascular: Regular, Normal peripheral perfusion. Respiratory: Lungs are clear to auscultation, respirations are non-labored, breath sounds are equal, Symmetrical chest wall expansion. Gastrointestinal: Soft, some mild left lower quadrant tenderness to palpation with no guarding, Non distended Musculoskeletal: Normal ROM, no deformity. Neurological: Alert and oriented, No focal neurological deficit observed. Psychiatric: Cooperative, appropriate mood & affect. Course Vital Signs: Vital signs: Vital Signs Temperature 97.5 F L 05/22/25 15:22 Pulse Rate 90 05/22/25 15:22 Respiratory Rate 16 05/22/25 15:22 Blood Pressure 168/123 05/22/25 15:22 Pulse Oximetry 98 05/22/25 15:22 Oxygen Delivery Me thod Room Air 05/22/25 15:22 MDM - General Adult Medical Decision Making Medical decision making: Differential diagnosis including but not limited to and based on the above HPI, review of systems and physical exam: In this patient with flank pain would have concern for: Ureterolithiasis. Urinary tract infection. Appendicitis. Cholecystitis. Musculoskeletal / back pain. Pyelonephritis. Orders placed to evaluate differential diagnosis based on the above differential, HPI and physical exam Lab Review: Laboratory results were reviewed and interpreted by myself the emergency room physician. No leukocytosis. No anemia. No renal failure. Urinalysis is negative. CT of the abdomen pelvis without contrast: Appendix is mildly dilated and a tiny amount of stranding nearby. However the patient has absolutely no pain in his right side. None to palpation and none reported. Adrenal nodule. Renal mass that is likely cystic. No obvious acute findings. This was reviewed and interpreted by myself the emergency room physician. I also reviewed the radiology report. Radiologist recommends no follow-up on either of the cystic type lesions. I reviewed the patient's medical record. Reexamination: Patient remained stable. No increased work of breathing. No altered mental status. No focal motor deficits. Assessment and plan: Flank pain - Discharged home - Discussed plan with patient. Answered any questions. - Evaluation and treatment of this problem were appropriate in the emergency setting. Lab Data 05/22/25 16:11 05/22/25 16:11 Radiology Impressions Abdomen/Pelvis CT 05/22/25 15:25 IMPRESSION: 1. The appendix is mildly dilated measuring 8 mm, and there is a tiny amount of adjacent fat stranding. This could be mild appendicitis. 2. 2 cm x 2.2 cm by 2.2 cm indeterminate right adrenal nodule measuring 18 Hounsfield units in density. Consider evaluating this further with multiphase CT or contrast MRI. 3. Indeterminate 2.7 cm posterior right renal mass. This can also be further characterized with multiphase CT or contrast MRI. 4. No other acute findings identified. 5. Additional details as above. COMMENTS: 1. Consistent with the [employer]'s Incidental Findings Committee white paper (J [employer] Corrie Radiol 2017): For any incidental adrenal lesion greater than or equal to 1 cm but less than or equal to 4 cm classified in this report as benign, likely benign, or containing fat (including classification as an adenoma or myelolipoma), no follow-up imaging is recommended per consensus recommendations based on imaging criteria. Further lab evaluation could be pursued if warranted based on clinical findings. 2. Consistent with the [employer]'s Incidental Findings Committee white paper (J [employer] Corrie Radiol 2018): Any incidental renal lesion less than 1 cm or classified as too small to characterize, or any incidental cystic renal lesion characterized as simple-appearing, is likely benign. No follow-up imaging is recommended for these lesions per consensus recommendations based on imaging criteria. ADDENDUM: 05/22/25 1611 ADDENDUM: THIS REPORT CONTAINS FINDINGS THAT MAY BE CRITICAL TO PATIENT CARE. The findings were verbally communicated via telephone conference with LYLY ANTONIO at 4:10 PM CDT on 05/22/2025. The findings were acknowledged and understood. Head CT 05/22/25 15:25 IMPRESSION: 1. No acute intracranial hemorrhage or CT evidence of ischemia. 2. Focally enlarged CSF density in the subarachnoid space overlying the high convexity left frontal lobe, measuring approximately 3.8 x 2.7 x 2.4 cm, with mild effacement of the underlying cerebral sulci, suspicious for an underlying arachnoid cyst. Recommend nonemergent MRI brain with and without contrast for further evaluation. Laboratory Results WBC 10.57 10^3/uL (3.29-11.43) 05/22/25 16:11 RBC 5.07 10^6/uL (3.85-5.65) 05/22/25 16:11 Hgb 13.80 g/dL (11.27-16.99) 05/22/25 16:11 Hct 41.9 % (37-53) 05/22/25 16:11 MCV 82.6 fl (82-101) 05/22/25 16:11 MCH 27.2 pg (27-33) 05/22/25 16:11 MCHC 32.9 g/dL (30-55) 05/22/25 16:11 RDW 14.8 % (12.1-15.1) 05/22/25 16:11 Plt Count 302 10^3/cmm (157-399) 05/22/25 16:11 MPV 9.7 fL (7.4-10.4) 05/22/25 16:11 Neut % (Auto) 69.4 % 05/22/25 16:11 Lymph % (Auto) 20.3 % 05/22/25 16:11 Franklin % (Auto) 7.9 % 05/22/25 16:11 Eos % (Auto) 1.5 % 05/22/25 16:11 Baso % (Auto) 0.5 % 05/22/25 16:11 Neut # (Auto) 7.33 10^3/uL (1.8-7.7) 05/22/25 16:11 Lymph # (Auto) 2.2 10^3/uL (0.8-4.8) 05/22/25 16:11 Franklin # (Auto) 0.8 10^3/uL (0.2-0.9) 05/22/25 16:11 Eos # (Auto) 0.2 10^3/uL (0.0-0.8) 05/22/25 16:11 Baso # (Auto) 0.1 10^3/uL (0.0-0.1) 05/22/25 16:11 Nucleated RBC % (auto) 0 % 05/22/25 16:11 Nucleated RBCs # 0.0 /100WBC 05/22/25 16:11 Sodium 137 mmol/L (136-145) 05/22/25 16:11 Potassium 3.2 mmol/L (3.5-5.1) L 05/22/25 16:11 Chloride 103 mmol/L (98-107) 05/22/25 16:11 Carbon Dioxide 20 mmol/L (22-29) L 05/22/25 16:11 Anion Gap 17.2 (5-19) 05/22/25 16:11 BUN 18 mg/dL (6-20) 05/22/25 16:11 Creatinine 0.7 mg/dL (0.7-1.2) 05/22/25 16:11 GFR Calculation 117.5 mL/min (90-130) 05/22/25 16:11 Glucose 110 mg/dL (65-115) 05/22/25 16:11 Calculated Osmolality 287 mOsm/kg (285-295) 05/22/25 16:11 Lactic Acid 1.6 mmol/L (0.5-2.2) 05/22/25 16:11 Calcium 9.1 mg/dL (8.5-10.5) 05/22/25 16:11 Total Bilirubin 0.4 mg/dL (0.15-1.2) 05/22/25 16:11 AST 12 U/L (0-40) 05/22/25 16:11 ALT 12 U/L (0-41) 05/22/25 16:11 Alkaline Phosphatase 69 U/L (40-130) 05/22/25 16:11 Total Protein 7.6 g/dL (6.6-8.7) 05/22/25 16:11 Albumin 4.2 g/dL (3.5-5.2) 05/22/25 16:11 Globulin 3.4 g/dL (1.3-4.6) 05/22/25 16:11 Urine Color Yellow (Yellow) 05/22/25 16:42 Urine Appearance Clear (CLEAR) 05/22/25 16:42 Urine pH 6.5 (5-7) 05/22/25 16:42 Ur Specific [place] 1.023 (1.005-1.030) 05/22/25 16:42 Urine Protein Trace (Negative) A 05/22/25 16:42 Urine Glucose (UA) Negative (Normal) 05/22/25 16:42 Urine Ketones Trace (Negative) 05/22/25 16:42 Urine Blood Negative (Negative) 05/22/25 16:42 Urine Nitrate Negative (Negative) 05/22/25 16:42 Urine Bilirubin Negative (Negative) 05/22/25 16:42 Urine Urobilinogen 1.0 mg/dL (Negative) 05/22/25 16:42 Ur Leukocyte Esterase Negative (Negative) 05/22/25 16:42 Urine RBC 0-2 /hpf (0-2) 05/22/25 16:42 Urine WBC 6-10 /hpf (0-5) 05/22/25 16:42 Ur Squamous Epith Cells 0-5 /hpf (0-5) 05/22/25 16:42 Amorphous Sediment Not Reportable 05/22/25 16:42 Urine Bacteria None seen /hpf (NONE) 05/22/25 16:42 Hyaline Casts 3.30 /lpf 05/22/25 16:42 All radiology interpretation(s) finalized by discharge Discharge Plan Discharge Patient Disposition: Home Clinical Impression: Flank pain Condition: Stable Prescriptions: No Action silver sulfadiazine 1 % cream 1 applic TOPICAL TID PRN (Reason: Skin Irritation) metformin 500 mg tablet 500 mg PO BID tizanidine 4 mg tablet 4 mg PO Q6H PRN (Reason: Spasms) famotidine 40 mg tablet 40 mg PO BID oxycodone 15 mg tablet 15 mg PO Q6H PRN (Reason: Moderate Pain (Scale Score 5-6)) temazepam 30 mg capsule 30 mg PO QPM PRN (Reason: Insomnia) amlodipine 10 mg tablet 10 mg PO DAILY clonazepam 2 mg tablet 2 mg PO BID PRN (Reason: Anxiety) gabapentin 300 mg capsule See Rx Instructions .ROUTE .COMPLEX Rx Instructions: TAKE 1 CAPSULE BY MOUTH IN THE MORNING AND 2 AT BEDTIME. hydromorphone 4 mg tablet 4 mg PO Q4H PRN (Reason: Pain) dexlansoprazole 30 mg capsule,biphase delayed releas 30 mg PO BID clonidine HCl 0.1 mg tablet 0.1 mg PO BID trazodone 100 mg tablet 100 mg PO BEDTIME lisinopril 40 mg tablet 40 mg PO DAILY rosuvastatin 10 mg tablet 10 mg PO BEDTIME Discharge Orders: Discharge ED (Routine); Ordered 05/22/25 Ordered By: Lyly Antonio Discharge Diet: Usual diet Discharge Activity: Increase activity as tolerated Patient Instructions: Opioid Safety, Pain Management, Patient Portal & Joseluis Instructions Activity Restrictions/Additional Instructions: Thank you for choosing [facility] for your healthcare needs today. You have been screened and evaluated and felt safe for discharge. Health conditions do change or evolve sometimes and as such it is important that you follow up with your Primary Doctor to be re checked, 3-5 days is a general good time frame for follow up. You are always welcome to return to the ED for re assessment if your symptoms are worsening or you have new concerns Print Language: Uzbek Coding Level of Care Code ED General Operations Manager for Todd Ordonez
[2025-05-22 16:23] LABS: Hematocrit 41.9 % (37-53); Hemoglobin 13.80 g/dL (11.27-16.99); Mean Corpuscular HGB Conc 32.9 g/dL (30-55); Mean Corpuscular Hemoglobin 27.2 pg (27-33); Mean Corpuscular Volume 82.6 fl (82-101); Nucleated Red Blood Cells % 0 %; Platelet Count 302 10^3/cmm (157-399); Red Blood Count 5.07 10^6/uL (3.85-5.65); White Blood Count 10.57 10^3/uL (3.29-11.43)
--- NOTE | 2025-05-22 16:24 | PC.PHAR ---
Irish Maldonado verified most current medications with last fill date and day supply. Narcotics have qty dispensed, added.
[2025-05-22 16:28] VITALS: BP 160/103; RESP 20; O2SAT 98
[2025-05-22 16:44] LABS: Alanine Aminotransferase 12 U/L (0-41); Albumin Level 4.2 g/dL (3.5-5.2); Alkaline Phosphatase 69 U/L (40-130); Anion Gap 17.2 (5-19); Aspartate Amino Transferase 12 U/L (0-40); Blood Urea Nitrogen 18 mg/dL (6-20); Calcium 9.1 mg/dL (8.5-10.5); Carbon Dioxide 20 mmol/L (22-29); Chloride 103 mmol/L (98-107); Globulin 3.4 g/dL (1.3-4.6); Glucose 110 mg/dL (65-115); Osmolality Calculated 287 mOsm/kg (285-295); Potassium 3.2 mmol/L (3.5-5.1); Sodium 137 mmol/L (136-145); Total Protein 7.6 g/dL (6.6-8.7)
[2025-05-22 16:45] LABS: Lactic Sepsis W/Reflex 1.6 mmol/L (0.5-2.2)
[2025-05-22 17:06] LABS: Glucose Urine UA Negative (Normal); Nitrate Urine Negative (Negative); Specific Gravity, Urine 1.023 (1.005-1.030)
[2025-05-22 17:40] VITALS: BP 158/90; PULSE 82; O2SAT 97
== END 2025-05-22 17:44 | disposition home or self-care (01) ==
PROVIDERS: Emergency Provider Emergency Medicine; PCP Family Medicine
DX: R10.9 Unspecified abdominal pain (principal); Z79.84 Long term (current) use of oral hypoglycemic drugs
CPT/HCPCS: 36415; 51798; 70450; 74176; 80053; 81001; 83605; 85025; 87040; 99284